=== PATIENT | female | born 1965 | race Caucasian/White ===

== ENCOUNTER → 2016-06-25 | Outpatient (CLI) | payer OTHER ==
[~2016-06-25] MED LIST: DESYREL50 MG PO; FLEXERIL10 MG PO; PROAIR HFA8.5 GM INH; SYMBICORT 16010.2 GM INH; ULTRAM50 MG PO
== END | disposition disaster alternative care site (69) ==
LOC: GRAD 15:42
DX: R91.8 Other nonspecific abnormal finding of lung field (principal)